=== PATIENT | female | born 2000 | race Two or more races ===

== ENCOUNTER 2023-09-05 07:52 | Emergency (ER) | payer MEDICAID, OTHER ==
[~2023-09-05] VITALS: Ht 162.6 cm; Wt 62.9 kg
[2023-09-05 08:08] VITALS: PULSE 75; RESP 16; O2SAT 98
[2023-09-05] MEDS: HYDROcodone-ACET 10/325MG TAB PO ONE (08:08)
[2023-09-05 08:27] LABS: Urine Bacteria None Seen /hpf (None Seen)
[2023-09-05 08:44] LABS: Urine Blood 1+ /uL (Negative); Urine Clarity Clear (Clear); Urine Color Light-Yellow (Yellow); Urine Mucus FEW (None Seen); Urine Protein, UAD Negative (Negative); Urine Specific Gravity 1.018 (1.001-1.035); Urine Urobilinogen Normal (Negative); Urine WBC 9 /hpf (0 - 5); Urine pH 5.5 (5.0-9.0)
[2023-09-05] MEDS ORDERED: TRAM50TA2 PO (08:59)
[2023-09-05] MEDS ORDERED: CIPR-173 PO (08:59)
[2023-09-05 09:05] VITALS: BP 103/51; PULSE 66; RESP 16; TEMP 97.8; O2SAT 99
[2023-09-05 09:59] LABS: Basophils # (auto) 0.1 10 ^3/uL (0-0.2); Basophils % (auto) 0.9 % (0.0-2.0); Eosinophils # (auto) 0.2 10 ^3/uL (0-0.8); Hematocrit 41.1 % (36.0-46.0); Hemoglobin 13.3 g/dL (12.2-16.2); Lymphocytes # (auto) 3.1 10 ^3/uL (0.4-5.4); Lymphocytes % (auto) 18.3 % (10.0-50.0); Mean Corpuscular Hemoglobin 29.1 pg (28.0-32.0); Mean Corpuscular Hgb Conc. 32.4 g/dL (32.0-36.0); Mean Corpuscular Volume 89.8 fL (80.0-100.0); Monocytes # (auto) 1.1 10 ^3/uL (0-1.3); Monocytes % (auto) 6.5 % (0.0-12.0); Neutrophils # (auto) 12.5 10 ^3/uL (1.6-8.6); Neutrophils % (auto) 73.3 % (37.0-80.0); Nucleated Red Blood Cells % 0.1 %; Red Blood Cells 4.58 10^6/uL (4.0-5.20)
[2023-09-05 10:00] LABS: Chloride 105 mmol/L (98-107); Potassium 3.7 mmol/L (3.5-5.1); Sodium 138 mmol/L (136-145)
[2023-09-05 10:01] LABS: Anion Gap 9 (5-15); Calcium 9.4 mg/dL (8.7-10.4); Carbon Dioxide 24 mmol/L (20-30)
[2023-09-05 10:06] LABS: Glucose 130 mg/dL (74-106)
[2023-09-05 10:13] LABS: BUN/Creatinine Ratio 9.3 (10.0-20.0); Blood Urea Nitrogen < 5 mg/dL (9-23)
== END 2023-09-05 10:52 | disposition home or self-care (01) ==
LOC: ER 07:52
DX: N39.0 Urinary tract infection, site not specified (principal); D72.829 Elevated white blood cell count, unspecified; M54.50 Low back pain, unspecified; Z32.02 Encounter for pregnancy test, result negative
CPT/HCPCS: 36415; 74176; 80048; 81001; 81025; 85025